=== PATIENT | male | born 1955 | race African-American/Black ===

== ENCOUNTER 2024-12-11 09:21 | Day surgery (SDC) | payer OTHER ==
[2024-12-11 09:49] VITALS: BP 173/94; TEMP 98.3
== END 2024-12-11 11:20 | disposition home or self-care (01) ==
LOC: CSHRAD 09:21
PROVIDERS: ATTEND Orthopaedic Surgery
PROC: B01BYZZ Fluoroscopy of Spinal Cord using Other Contrast (ICD-10-PCS; principal; 2024-12-11)
DX: M48.062 Spinal stenosis, lumbar region with neurogenic claudication (principal); M48.02 Spinal stenosis, cervical region; M48.04 Spinal stenosis, thoracic region
CPT/HCPCS: 62284; 72126; 72129; 72132; 77003